=== PATIENT | male | born 1945 | race Caucasian/White ===

== ENCOUNTER → 2016-08-23 | Outpatient (CLI) | payer MEDICARE, OTHER | END | disposition home or self-care (01) | LOC: CFH 08:08 | PROVIDERS: ATTEND Internal Medicine Cardiovascular Disease | DX: I08.3 Combined rheumatic disorders of mitral, aortic and tricuspid valves (principal); M06.9 Rheumatoid arthritis, unspecified; Z85.71 Personal history of Hodgkin lymphoma | CPT/HCPCS: 93306 ==

== ENCOUNTER 2016-09-23 17:12 | Emergency (ER) | payer MEDICARE, OTHER ==
[~2016-09-23] VITALS: Ht 175.3 cm; Wt 100.7 kg
[2016-09-23 17:21] VITALS: BP 133/81
[2016-09-23] MEDS ORDERED: DIPH,PERTUSS(ACELL),TET VAC/PF 0.5 ML IM-VACC ONE ×3 (18:00→18:02)
[2016-09-23] MEDS ORDERED: LIDOCAINE 1%, 20ML SQ ONE (18:00)
[2016-09-23] MEDS ORDERED: LIDOCAINE 1%, 20ML ONE (18:01)
== END 2016-09-23 19:24 | disposition home or self-care (01) ==
LOC: ED 19:03
DX: S81.811A Laceration without foreign body, right lower leg, initial encounter (principal); E78.5 Hyperlipidemia, unspecified; M06.9 Rheumatoid arthritis, unspecified; W26.8XXA Contact with other sharp object(s), not elsewhere classified, initial encounter; Y93.89 Activity, other specified; Y92.009 Unspecified place in unspecified non-institutional (private) residence as the place of occurrence of the external cause; Y99.9 Unspecified external cause status
CPT/HCPCS: 12002; 90471; 90715

== ENCOUNTER → 2017-03-07 | Outpatient (CLI) | payer MEDICARE, OTHER | LOC: PETCFH 08:29 | PROVIDERS: ATTEND Specialist | DX: C82.00 Follicular lymphoma grade I, unspecified site (principal); Q63.1 Lobulated, fused and horseshoe kidney; I51.7 Cardiomegaly; I25.10 Atherosclerotic heart disease of native coronary artery without angina pectoris | CPT/HCPCS: 78815; A9552 ==

== ENCOUNTER → 2018-01-27 | Outpatient (CLI) | payer MEDICARE, OTHER ==
[~2018-01-27] MED LIST: REGADENOSON 0.4 MG/5 ML SYRINGE ONE
== END | disposition home or self-care (01) ==
LOC: CFH 08:27
PROVIDERS: ATTEND Internal Medicine Cardiovascular Disease
DX: I25.10 Atherosclerotic heart disease of native coronary artery without angina pectoris (principal)
CPT/HCPCS: 78452; 93017; A9502; J2785

== ENCOUNTER 2020-05-20 07:29 | Outpatient (CLI) | payer MEDICARE, OTHER ==
[2020-05-20] MEDS ORDERED: AMINOPHYLLINE 25 MG/ML, 10ML ONE (11:47)
== END 2020-05-20 23:59 | disposition home or self-care (01) ==
LOC: CFH 07:29
PROVIDERS: ATTEND Internal Medicine Cardiovascular Disease
DX: Z01.810 Encounter for preprocedural cardiovascular examination (principal); R00.1 Bradycardia, unspecified; I25.10 Atherosclerotic heart disease of native coronary artery without angina pectoris
CPT/HCPCS: 78452; 93017; A9502; J0280; J2785